=== PATIENT | female | born 1955 | race Caucasian/White ===

== ENCOUNTER → 2018-02-26 | Outpatient (CLI) | payer BC | END | disposition home or self-care (01) | LOC: KCIC MRI 14:07 | DX: M47.896 Other spondylosis, lumbar region (principal); Z98.1 Arthrodesis status | CPT/HCPCS: 72148 ==

== ENCOUNTER → 2020-11-09 | Outpatient (CLI) | payer MEDICARE, BC ==
[2014-06-01 07:17] VITALS: BP 125/73
[~2020-11-09] MED LIST: CALC-53 PO; DICL100G54 TP; HYDR-3165 PO; LACT1CAP6 PO; MULT1TAB6 PO; VITA1TAB19 PO
--- NOTE | 2020-11-09 11:28 | KCIC ---
Bilateral digital screening mammograms with 3-D tomosynthesis: Reason for examination: Routine screening. Comparison is made to previous study dated 05/04/2016. Bilateral mammograms in CC and oblique projections were obtained with 2-D imaging and 3-D tomosynthes is imaging on a Siemens Inspiration unit and reviewed on the workstation. Interpretation was made wit h the benefit of CAD. The skin and nipples show no abnormalities. No abnormal axillary lymph nodes are seen. The breast par enchyma shows scattered fatty and fibroglandular density. (Breast density: Category B.) There are sma ll nodules bilaterally which are stable. There are no new dominant masses, suspicious calcifications or architectural distortion. Benign calcifications are present. Impression: No evidence of malignancy. Recommend routine screening. BI-RAD Category 2: Benign. "Our facility is accredited by the [employer] Mammography Program." This patient's information has been entered into a reminder system for the patient to be notified wit h the results of her examination and a target date for the next mammogram. Electronically signed by: Ann Flores MD (11/09/2020 11:26 AM) [email or web address]
== END ==
LOC: KCIC MAMMO 10:19
PROVIDERS: ATTEND Family Medicine
DX: Z12.31 Encounter for screening mammogram for malignant neoplasm of breast (principal)
CPT/HCPCS: 77063; 77067